=== PATIENT | male | born 1985 ===

== ENCOUNTER 2020-12-02 10:09 | Emergency (ER) | payer MEDICAID ==
[~2020-12-02] VITALS: Ht 182.9 cm; Wt 81.1 kg
[2020-12-02 10:46] VITALS: BP 134/82
[2020-12-02] MEDS ORDERED: CefTRIAXone 1000mg IM Kit (w/lidocaine diluent) IM ONE (11:55)
[2020-12-02] MEDS ORDERED: LIDOcaine 4% (40 mg/ml) topical solution 50ml TP ONE (12:55)
[2020-12-02] MEDS ORDERED: LIDO20SO16 PO (14:16)
[2020-12-02] MEDS ORDERED: dexamethasone sod phosphate 10mg/ml inj IM STA (14:16)
[2020-12-02] MEDS ORDERED: CEPH250T PO (14:16)
[2020-12-02] MEDS ORDERED: NAPR-56 PO (14:16)
[2020-12-02] MEDS ORDERED: HYDR-3965 PO (14:16)
== END 2020-12-02 15:05 | disposition home or self-care (01) ==
LOC: ER 10:10
DX: J36 Peritonsillar abscess (principal); R50.9 Fever, unspecified; Z79.2 Long term (current) use of antibiotics; Z79.899 Other long term (current) drug therapy
CPT/HCPCS: 42700; 87081; 87880; 94640; 96372; 99284; J0696; J1100; 10160

== ENCOUNTER 2021-12-30 08:51 | Emergency (ER) | payer MEDICAID ==
[~2021-12-30] VITALS: Ht 182.9 cm; Wt 79.5 kg
[~2021-12-30 08:51] MED LIST: LIDO20SO16 PO
[2021-12-30] MEDS ORDERED: ondansetron 4mg rapidly disintigrating tab PO ONE (10:25)
[2021-12-30] MEDS ORDERED: dexamethasone 4mg tablet PO ONE (10:25)
[2021-12-30] MEDS ORDERED: amox tr/potassium clavulanate 500mg/125mg TAB PO ONE (10:25)
[2021-12-30] MEDS ORDERED: LIDOcaine 2% 10ml TOPICAL JELLY (Urojet) MM ONE (10:25)
[2021-12-30 10:45] VITALS: BP 120/86
--- NOTE | 2021-12-30 10:46 | NUR ---
Pt connected to registered nurse cardiac, suction set up per Md orders.
--- NOTE | 2021-12-30 10:54 | NUR ---
Pt tolerated po meds without difficulty.
[2021-12-30] MEDS ORDERED: PRED20TA PO (11:12)
[2021-12-30] MEDS ORDERED: AMOX-419 PO (11:12)
== END 2021-12-30 11:20 | disposition home or self-care (01) ==
LOC: ER 08:51
DX: J36 Peritonsillar abscess (principal)
CPT/HCPCS: 42700; 99284